=== PATIENT | male | born 1950 | race Hispanic/Latino ===

== ENCOUNTER → 2023-07-13 | Outpatient (CLI) | payer OTHER ==
[2023-07-13] MEDS: REGADENOSON 0.4 MG/5 ML PF SYG IVP ONE (14:47)
== END | disposition home or self-care (01) ==
LOC: SHCH 08:00
PROVIDERS: ATTEND Internal Medicine Cardiovascular Disease
DX: I48.0 Paroxysmal atrial fibrillation (principal); I49.3 Ventricular premature depolarization
CPT/HCPCS: 78452; 96374; 93017; J2785; A9500 ×2

== ENCOUNTER 2023-11-04 09:45 | Observation (INO) | payer OTHER ==
[2023-11-02 12:26] VITALS: BP 112/63; PULSE 52; RESP 18
[2023-11-02 12:31] LABS: BASOPHILS # (AUTO) 0.05 K/uL (0.00-0.20); BASOPHILS % (AUTO) 0.8 % (0.0-5.0); EOSINOPHILS # (AUTO) 0.29 K/uL (0.00-0.70); EOSINOPHILS % (AUTO) 4.8 % (0.0-8.0); HEMATOCRIT 40.9 % (42-54); IMMATURE GRANULOCYTE ABSOLUTE 0.03 K/uL (0-1); LYMPHOCYTES # (AUTO) 2.3 K/uL (1.0-4.8); LYMPHOCYTES % (AUTO) 38.3 % (21.0-51.0); MEAN CORPUSCULAR HEMOGLOBIN 32.5 pg (27.0-33.0); MEAN CORPUSCULAR HGB CONC 33.7 g/dL (32.0-36.0); MEAN CORPUSCULAR VOLUME 96.2 fL (79-99); MONOCYTES # (AUTO) 0.6 K/uL (0.1-1.0); NEUTROPHILS # (AUTO) 2.8 K/uL (1.8-7.7); NEUTROPHILS % (AUTO) 46.6 % (40.0-77.0); PLATELET COUNT (AUTO) 132 K/uL (130-400); RED BLOOD CELL COUNT(AUTO) 4.25 MIL/uL (4.50-6.20); RED CELL DISTRIBUTION WIDTH 13.7 % (11.0-15.5); WHITE BLOOD COUNT (AUTO) 6.1 K/uL (4.8-10.8)
[2023-11-02 12:42] LABS: CREATININE 0.7 mg/dL (0.5-1.3); POTASSIUM 4.4 mmol/L (3.5-5.1)
[2023-11-02 12:43] LABS: INR 1.08 (0.85-1.15); PROTHROMBIN TIME 11.6 SEC (9.6-11.6)
[2023-11-02 12:44] LABS: PARTIAL THROMBOPLASTIN TIME 29.8 SEC (26.3-35.5)
[~2023-11-04] VITALS: Ht 162.6 cm; Wt 73.5 kg
[2023-11-04] VITALS (13 sets, daily range): BP systolic 96–132; BP diastolic 46–83; PULSE 47–68; RESP 14–20; O2SAT 96
[~2023-11-04 09:45] MED LIST: ALBU18HF7 IH; APIX5TAB PO; ATOR10 PO; CINN500C PO; FLUT1BLS11 IH; KRIL500C PO; LISI2.5T13 PO; METO-408 PO; MONT-47 PO; MULT-1367 PO
[2023-11-04] MEDS: 0.9%NACL 1000ML 1,000 ML IV ONE (10:17)
[2023-11-04] MEDS ORDERED: HEPARIN 10,000 UNIT/10ML (1,000 UNIT/ML) VIAL ONE (14:27)
[2023-11-04] MEDS ORDERED: IOHEXOL 350 MG/ML 100ML INFUS..BTL IV ONE (14:27)
[2023-11-04] MEDS ORDERED: LIDOCAINE HCL 400MG/20ML VIAL ONE (14:27)
[2023-11-04] MEDS ORDERED: NITROGLYCERIN 50MG VIAL ONE (14:28)
[2023-11-04] MEDS ORDERED: BIVALIRUDIN 250 MG/VIAL IV ONE (14:28)
[2023-11-04] MEDS ORDERED: MIDAZOLAM HCL 1 MG/ML 2ML VIAL ONE (14:52)
[2023-11-04] MEDS ORDERED: FENTANYL CITRATE PF 50 MCG/1 ML 2ML VIAL ONE (14:52)
[2023-11-04] MEDS ORDERED: ASPIRIN 81MG CHEW TAB ONE (15:26)
[2023-11-04] MEDS ORDERED: CLOPIDOGREL 300MG TAB ONE (15:27)
[2023-11-04] MEDS: 0.9%NACL 1000ML 1,000 ML IV SCH (16:00)
[2023-11-04] MEDS ORDERED: DEXTROSE 50%-WATER 50 ML DISP.SYRIN IV PRN (16:00)
[2023-11-04] MEDS ORDERED: HYDRALAZINE 20MG/ML VIAL IV PRN (16:00)
[2023-11-04] MEDS ORDERED: NITROGLYCERIN 0.4 MG SL TAB SL PRN (16:00)
[2023-11-04] MEDS ORDERED: GLUCAGON 1MG KIT 1 MG ML IM PRN (16:00)
[2023-11-04] MEDS: INSULIN HUMULIN R 100 UNIT/ML 3ML SQ SCH (16:30)
[2023-11-04] MEDS ORDERED: IPRATROPIUM/ALBUTEROL SULFATE 3 ML SOLUTION IH PRN (19:30)
[2023-11-04] MEDS: MULTIVITAMIN TABLET PO SCH (20:14)
[2023-11-04] MEDS: MONTELUKAST SODIUM 10 MG TAB PO SCH (20:14)
[2023-11-04] MEDS: METOPROLOL SUCCINATE 25 MG TAB.SR.24H PO SCH (20:14)
[2023-11-04] MEDS: ATORVASTATIN 20 MG TABLET PO SCH (20:14)
[2023-11-04] MEDS: CINNAMON BARK 500 MG PO SCH (20:15)
[2023-11-04] MEDS: ACETAMINOPHEN 325 MG TAB PO PRN (20:49)
[2023-11-04] MEDS ORDERED: ATORVASTATIN 10 MG TABLET PO SCH (21:00)
[2023-11-05 04:29] VITALS: BP 122/68; PULSE 63; RESP 20
[2023-11-05 04:33] LABS: BASOPHILS # (AUTO) 0.05 K/uL (0.00-0.20); BASOPHILS % (AUTO) 0.8 % (0.0-5.0); EOSINOPHILS # (AUTO) 0.26 K/uL (0.00-0.70); HEMATOCRIT 35.2 % (42-54); IMMATURE GRANULOCYTE ABSOLUTE 0.03 K/uL (0-1); LYMPHOCYTES # (AUTO) 2.1 K/uL (1.0-4.8); LYMPHOCYTES % (AUTO) 32.8 % (21.0-51.0); MEAN CORPUSCULAR HEMOGLOBIN 32.3 pg (27.0-33.0); MEAN CORPUSCULAR HGB CONC 34.7 g/dL (32.0-36.0); MEAN CORPUSCULAR VOLUME 93.1 fL (79-99); MONOCYTES # (AUTO) 0.7 K/uL (0.1-1.0); NEUTROPHILS # (AUTO) 3.4 K/uL (1.8-7.7); NEUTROPHILS % (AUTO) 51.9 % (40.0-77.0); PLATELET COUNT (AUTO) 128 K/uL (130-400); RED BLOOD CELL COUNT(AUTO) 3.78 MIL/uL (4.50-6.20); RED CELL DISTRIBUTION WIDTH 13.9 % (11.0-15.5); WHITE BLOOD COUNT (AUTO) 6.5 K/uL (4.8-10.8)
[2023-11-05 04:46] LABS: ALBUMIN 3.2 g/dL (3.5-5.0); BILIRUBIN,TOTAL 0.9 mg/dL (0.2-1.0); CREATININE 0.7 mg/dL (0.5-1.3); POTASSIUM 3.9 mmol/L (3.5-5.1); TOTAL PROTEIN, SERUM 6.4 g/dL (6.0-8.3)
[2023-11-05] MEDS ORDERED: POTASSIUM CHLORIDE 10MEQ/100ML 100 ML IV PRN (05:00)
[2023-11-05] MEDS ORDERED: KCL 20 MEQ ERTAB PO PRN (05:00)
[2023-11-05] MEDS ORDERED: POTASSIUM CHLORIDE 10% ELIXIR 20 MEQ/15 ML UDCUP PO PRN (05:00)
[2023-11-05] MEDS ORDERED: IPRATROPIUM 0.5 MG/2.5 ML INH IH PRN (05:30)
[2023-11-05 08:00] VITALS: O2SAT 98
[2023-11-05 08:18] VITALS: BP 114/61; PULSE 46; RESP 17
[2023-11-05] MEDS: (Fluticasone Propion/Salmeterol (Fluticasone-Salmeterol 10 IH SCH (09:00)
[2023-11-05] MEDS ORDERED: POTASSIUM CHLORIDE 10MEQ SR TAB PO PRN (09:00)
[2023-11-05] MEDS: ISOSORBIDE MONO 30MG SR TAB PO SCH (09:15)
[2023-11-05] MEDS: FAMOTIDINE 20MG TAB PO SCH (09:15)
[2023-11-05] MEDS: ASPIRIN 81 MG EC TAB PO SCH (09:16)
[2023-11-05] MEDS: CLOPIDOGREL 75MG TAB PO SCH (09:16)
[2023-11-05] MEDS: LISINOPRIL 2.5 MG TABLET PO SCH (09:16)
[2023-11-05 11:00] VITALS: BP 117/53; PULSE 57; RESP 18
[2023-11-05] MEDS ORDERED: MONTELUKAST SODIUM 10 MG TAB PO SCH (12:00)
== END 2023-11-05 14:30 | disposition home or self-care (01) ==
LOC: DAH 09:45 → DAHIP 09:46 → INTOOBSV 09:46 → 2AH 18:56
PROVIDERS: ADMIT Internal Medicine; ATTEND Internal Medicine
DX: I25.110 Atherosclerotic heart disease of native coronary artery with unstable angina pectoris (principal); I48.0 Paroxysmal atrial fibrillation; I10 Essential (primary) hypertension; E78.5 Hyperlipidemia, unspecified; E11.9 Type 2 diabetes mellitus without complications; J45.909 Unspecified asthma, uncomplicated; I25.5 Ischemic cardiomyopathy; Z86.718 Personal history of other venous thrombosis and embolism; Z86.73 Personal history of transient ischemic attack (TIA), and cerebral infarction without residual deficits; Z79.01 Long term (current) use of anticoagulants; Z79.899 Other long term (current) drug therapy
CPT/HCPCS: 80048; 85025 ×2; 85610; 85730; 36415 ×2; 71045; 93005; 82948 ×4; 94664; 93458; 96361; 96360; 96372; 83735; 80053; C9600; C1769; C1887; C1894 ×2; C1874 ×2; J3010; J3490 ×2; J7030; J2250; J1644; J0583; Q9967; A4215; A4222; A4221; A4663; A4216; A4606; Q9965 ×2; J1815; G0378; A4223 ×3; 99156; 99157

== ENCOUNTER → 2024-01-21 | Outpatient (CLI) | payer OTHER | END | disposition home or self-care (01) | LOC: SHCH 10:41 | PROVIDERS: ATTEND Internal Medicine Cardiovascular Disease | DX: I25.10 Atherosclerotic heart disease of native coronary artery without angina pectoris (principal); R07.9 Chest pain, unspecified | CPT/HCPCS: 93306 ==

== ENCOUNTER → 2024-07-08 | Outpatient (CLI) | payer OTHER | END | disposition home or self-care (01) | LOC: SHCH 13:04 | PROVIDERS: ATTEND Internal Medicine Cardiovascular Disease | DX: I08.8 Other rheumatic multiple valve diseases (principal); R00.2 Palpitations | CPT/HCPCS: 93306 ==